=== PATIENT | female | born 1995 | race Hispanic/Latino ===

== ENCOUNTER 2023-07-08 13:13 | Emergency (ER) | payer OTHER ==
[~2023-07-08] VITALS: Ht 149.9 cm; Wt 63.5 kg
[2023-07-08 20:58] VITALS: BP 110/80; PULSE 76; RESP 18; O2SAT 98
[2023-07-08] MEDS ORDERED: IBUP-2070 PO (21:45)
== END 2023-07-08 21:47 | disposition home or self-care (01) ==
LOC: EDH 13:13
DX: S86.912A Strain of unspecified muscle(s) and tendon(s) at lower leg level, left leg, initial encounter (principal); Z98.51 Tubal ligation status; Z88.0 Allergy status to penicillin; V89.2XXA Person injured in unspecified motor-vehicle accident, traffic, initial encounter; Y93.89 Activity, other specified; Y92.89 Other specified places as the place of occurrence of the external cause; Y99.8 Other external cause status
CPT/HCPCS: 73562